=== PATIENT | female | born 1930 | race Caucasian/White ===

== ENCOUNTER 2018-05-25 09:07 | Outpatient (CLI) | payer MEDICARE | END 2018-05-25 23:59 | disposition home or self-care (01) | LOC: CVU 09:07 | PROVIDERS: ATTEND Internal Medicine | DX: R10.11 Right upper quadrant pain (principal); I10 Essential (primary) hypertension; E03.9 Hypothyroidism, unspecified; R20.9 Unspecified disturbances of skin sensation | CPT/HCPCS: 93922 ==